=== PATIENT | male | born 1980 | race Caucasian/White ===

== ENCOUNTER 2020-01-13 18:42 | Emergency (ER) | payer OTHER ==
[~2020-01-13] VITALS: Ht 185.4 cm; Wt 100.0 kg
[2020-01-13] MEDS ORDERED: IBUPROFEN 600MG TABLET PO ONE (22:45)
[2020-01-13 23:40] LABS: CLARITY URINE CLEAR (CLEAR); COLOR URINE YELLOW (YELLOW); KETONES URINE TRACE (NEGATIVE); LEUKOCYTE ESTERASE URINE 1+ (NEGATIVE); NITRITE URINE POSITIVE (NEGATIVE); OCCULT BLOOD URINE TRACE (NEGATIVE); PH URINE 5.5 (4.5-8.0); PROTEIN URINE TRACE (NEGATIVE); SPECIFIC GRAVITY URINE 1.015 (1.005-1.030); UROBILINOGEN URINE 0.2 E.U./dL (0.2-1.0)
[2020-01-14] MEDS ORDERED: LEVOFLOXACIN 250MG TABLET PO ONE
[2020-01-14] MEDS ORDERED: LEVOFLOXACIN 750MG PREMIX 150 ML IV ONE
[2020-01-14] MEDS ORDERED: ONDANSETRON HCL 4MG/2ML INJ IV STA
[2020-01-14] MEDS ORDERED: SODIUM CHLORIDE 0.9% 1,000 ML IV ONE ×2 (00:09)
[2020-01-14 00:37] LABS: HEMATOCRIT. 40.5 % (42.0-52.0); MEAN CORPUSCULAR HEMOGLOBIN 31.6 pg (28.0-32.0); MEAN CORPUSCULAR VOLUME 91.2 fL (80.0-94.0); MEAN PLATELET VOLUME 8.9 fl (7.4-10.4); PLATELET 217 x1000/uL (130-400); RED BLOOD CELL COUNT 4.44 mill/uL (4.7-6.1); RED CELL DISTRIBUTION WIDTH 13.1 % (11.6-14.6)
[2020-01-14 00:42] LABS: CHLORIDE 102 mEq/L (98-107)
[2020-01-14 00:44] LABS: INR 1.2; PROTHROMBIN TIME 12.6 sec (9.6-11.0)
[2020-01-14] MEDS ORDERED: ACETAMINOPHEN 325MG TABLET PO ONE (00:45)
[2020-01-14 01:17] LABS: PLATELET ESTIMATE NORMAL
[2020-01-14 02:21] VITALS: BP 100/65
== END 2020-01-14 02:50 | disposition home or self-care (01) ==
LOC: ER 18:42
DX: J06.9 Acute upper respiratory infection, unspecified (principal); N12 Tubulo-interstitial nephritis, not specified as acute or chronic
CPT/HCPCS: 36415; 71045; 80053; 81003; 83605; 85025; 85610; 87040; 87077; 87086; 87186; 87804; 96365; 96375; 99284; J1956; J2405; J7030